=== PATIENT | female | born 1950 | race Caucasian/White ===

== ENCOUNTER 2020-05-18 07:02 | Inpatient (IN) | payer MEDICAID, MEDICARE ==
[~2020-05-18] VITALS: Ht 157.5 cm; Wt 64.9 kg
[2020-05-18] MEDS ORDERED: MORPHINE SULFATE 2 MG/1 ML DISP.SYRIN ONE (07:43)
[2020-05-18] MEDS ORDERED: ONDANSETRON 4 MG/2 ML VIAL ONE (07:43)
[2020-05-18 07:45] LABS: *BILIRUBIN,URIN NEGATIVE (NEGATIVE); *BLOOD, URINE 1+ (NEGATIVE); *CLARITY,URINE SLIGHTLY CLOUDY (CLEAR); *COLOR,URINE LIGHT YELLOW (YELLOW); *KETONES,URINE NEGATIVE (NEGATIVE); *UROBILINOGEN,URINE 0.2 E.U./dl (NORMAL); LEUKOCYTE ESTERASE ,URINE 3+ (NEGATIVE); NITRITE, URINE POSITIVE (NEGATIVE); PH,URINE 5.5 (5.0-8.0); UGLUCOSE NEGATIVE (NEGATIVE)
[2020-05-18 07:45] LABS: BASOPHILS % (AUTO) 0.2 % (0.0-2.0); EOSINOPHILS % (AUTO) 1.1 % (0.0-7.0); HEMATOCRIT 31.5 % (31.2-41.9); HEMOGLOBIN 10.4 g/dL (10.9-14.3); LYMPHOCYTES # (AUTO) 1.3 K/uL (20.0-40.0); LYMPHOCYTES % (AUTO) 32.5 % (20.5-51.5); MEAN CORPUSCULAR HEMOGLOBIN 30.8 uug (24.7-32.8); MEAN CORPUSCULAR HGB CONC 33 g/dL (32.3-35.6); MEAN CORPUSCULAR VOLUME 93.1 fL (75.5-95.3); MONOCYTES # (AUTO) 0.3 K/uL (2.0-10.0); MONOCYTES % (AUTO) 7.1 % (0.0-11.0); NEUTROPHILS # (AUTO) 2.3 K/uL (1.8-8.9); NEUTROPHILS % (AUTO) 59.1 % (38.5-71.5); PLATELET COUNT (AUTO) 218 K/uL (179-408); RED BLOOD CELL COUNT(AUTO) 3.38 MIL/uL (3.63-4.92); WHITE BLOOD COUNT (AUTO) 3.9 K/uL (3.8-11.8)
[2020-05-18] MEDS ORDERED: MORPHINE SULFATE 2 MG/1 ML DISP.SYRIN IV ONE (07:45)
[2020-05-18] MEDS ORDERED: ONDANSETRON 4 MG/2 ML VIAL IV ONE (07:45)
[2020-05-18 07:49] LABS: CREATININE 0.9 mg/dL (0.6-1.3); POTASSIUM 3.4 mmol/L (3.5-5.1)
[2020-05-18 07:55] LABS: BILIRUBIN,DIRECT 0.2 mg/dL (0.0-0.2); BILIRUBIN,TOTAL 0.7 mg/dL (0.2-1.0); TOTAL PROTEIN, SERUM 7.7 g/dL (6.4-8.2)
--- NOTE | 2020-05-18 08:24 | NUR ---
Paged [facility] for admit. Awaiting DR payton call back.
[2020-05-18] MEDS ORDERED: CEFTRIAXONE /D5W 50ML IVPB **ER PYXIS IV ONE (08:27)
--- NOTE | 2020-05-18 08:28 | NUR ---
ZOLTAN VILLARREAL spoke to Dr Parks ([facility]).
[2020-05-18] MEDS ORDERED: CEFTRIAXONE 1 G in IV DEXTROSE 5% 50 ML IV ONE (08:30)
[2020-05-18] MEDS ORDERED: KETAMINE HCL 500 MG/10 ML INJ IV ONE (08:30)
[2020-05-18] MEDS ORDERED: KETAMINE HCL 500 MG/10 ML INJ ONE (08:37)
--- NOTE | 2020-05-18 08:52 | NUR ---
WAITING FOR PT'S SON TO BRING IN LIST OF HOME MEDS.
--- NOTE | 2020-05-18 10:20 | NUR ---
transfered pt to floor in stable condition. pt remained comfortable after ketamine. ra sat 98%.
--- NOTE | 2020-05-18 10:35 | NUR ---
Admitted the patient from the ER. with admitting diagnosis of abdominal pain, right flank pain, and lower back pain. Patient is alert and oriented x 4. Cooperative upon assessment. On chang catheter, IV access on left AC. skin is intact. VS wnl. on RA saturating at 96%. Called [facility] pharmacy to clarify her home meds and dosages. Call light within reach, bed alarm on and all needs attended promptly. Patient has antibiotic at bedside and gave to pharmacy. Patient prefer Kosher food and dietary notified. MRSA swab done and forward to the lab. Will continue to monitor.
[2020-05-18 11:28] VITALS: BP 144/66
[2020-05-18] MEDS ORDERED: ZOLPIDEM 5 MG TABLET PO PRN (11:30)
[2020-05-18] MEDS ORDERED: Z GUARD REMEDY PASTE 57 GM TUBE TOP PRN (11:30)
[2020-05-18] MEDS ORDERED: METO-356 PO (11:56)
[2020-05-18] MEDS ORDERED: ASCO500T10 PO (11:56)
[2020-05-18] MEDS ORDERED: OMEP20CA15 PO (11:56)
[2020-05-18] MEDS ORDERED: LISI-782 PO (11:56)
[2020-05-18] MEDS ORDERED: METF-440 PO (11:56)
[2020-05-18] MEDS ORDERED: FLUO20CA36 PO (11:56)
[2020-05-18] MEDS ORDERED: OMEGA FISH OIL PO (11:56)
[2020-05-18] MEDS: ENOXAPARIN SODIUM 40 MG/0.4 ML DISP.SYRIN SQ SCH (13:40)
[2020-05-18 15:59] VITALS: BP 104/57
[2020-05-18] MEDS: IV NS 1000 ML 1,000 ML IV PRN (16:18)
[2020-05-18 20:00] VITALS: BP 126/75
[2020-05-18 20:24] LABS: BACTERIA,URINE MODERATE /HPF (NONE SEEN); SQUAMOUS EPITHELIAL CELL,UR FEW /HPF (NONE SEEN); WBC,URINE 50-80 /HPF (0-3)
[2020-05-18] MEDS: HYDROCODONE/APAP 10-325 MG TABLET PO PRN (20:24)
[2020-05-19 04:00] VITALS: BP 116/67
[2020-05-19] MEDS: HYDROCODONE/APAP 10-325 MG TABLET PO PRN ×3 (04:41→23:39)
[2020-05-19 06:15] LABS: BASOPHILS % (AUTO) 0.3 % (0.0-2.0); EOSINOPHILS % (AUTO) 1.3 % (0.0-7.0); HEMOGLOBIN 9.5 g/dL (10.9-14.3); LYMPHOCYTES # (AUTO) 0.9 K/uL (20.0-40.0); LYMPHOCYTES % (AUTO) 28.4 % (20.5-51.5); MEAN CORPUSCULAR HEMOGLOBIN 31.4 uug (24.7-32.8); MEAN CORPUSCULAR HGB CONC 34 g/dL (32.3-35.6); MONOCYTES # (AUTO) 0.2 K/uL (2.0-10.0); MONOCYTES % (AUTO) 7.6 % (0.0-11.0); NEUTROPHILS % (AUTO) 62.4 % (38.5-71.5); PLATELET COUNT (AUTO) 174 K/uL (179-408); RED BLOOD CELL COUNT(AUTO) 3.01 MIL/uL (3.63-4.92); WHITE BLOOD COUNT (AUTO) 3.1 K/uL (3.8-11.8)
[2020-05-19] MEDS: PANTOPRAZOLE SODIUM 40 MG TABLET.DR PO SCH (06:37)
[2020-05-19 06:49] LABS: BILIRUBIN,TOTAL 0.6 mg/dL (0.2-1.0); CREATININE 0.8 mg/dL (0.6-1.3); MAGNESIUM 1.6 mg/dL (1.8-2.4); PHOSPHOROUS 3.4 mg/dL (2.5-4.9); POTASSIUM 3.8 mmol/L (3.5-5.1); TOTAL PROTEIN, SERUM 6.7 g/dL (6.4-8.2)
[2020-05-19 06:52] LABS: THYROID STIMULATING HORMONE 1.206 mIU/mL (0.358-3.740)
[2020-05-19] MEDS: IV NS 1000 ML 1,000 ML IV PRN (07:50)
[2020-05-19] MEDS: CEFTRIAXONE 1 G in IV DEXTROSE 5% 50 ML IV SCH (08:02)
[2020-05-19] MEDS: ENOXAPARIN SODIUM 40 MG/0.4 ML DISP.SYRIN SQ SCH (08:03)
[2020-05-19] MEDS: MAGNESIUM HYDROXIDE 30 ML LIQUID UDC PO PRN (08:32)
[2020-05-19] MEDS: MAGNESIUM SULFATE/D5W 100 ML IV SCH ×2 (10:28→10:45)
[2020-05-19 11:30] LABS: *RHEUMATOID FACTOR SCREEN NEGATIVE (NEGATIVE)
[2020-05-19 11:31] VITALS: BP 114/68
[2020-05-19] MEDS ORDERED: LACTULOSE 20 G/30 ML LIQUID UDC PO ONE (11:45)
[2020-05-19] MEDS ORDERED: SORBITOL 70% SOLUTION 30 ML UDC PO ONE (11:45)
[2020-05-19] MEDS: ONDANSETRON 4 MG/2 ML VIAL IV PRN (13:51)
[2020-05-19 15:08] VITALS: BP 119/71
--- NOTE | 2020-05-19 19:45 | NUR ---
PATIENT ALERT ORIENTED, CONT ON PAIN MANAGEMENT DUE R SIDE OF PELVIC THRU BACK. PATIENT CROCKETT CATH PATENT DRAINING WITH NINO COLOR URINE. PATIENT HAS NO COMPLAIN OF PAIN AT THIS TIME. CONT TO MONITOR.
[2020-05-19 20:00] VITALS: BP 118/64
[2020-05-19] MEDS: ACETAMINOPHEN 325 MG TABLET PO PRN (20:54)
[2020-05-20 04:00] VITALS: BP 121/55
[2020-05-20] MEDS: ACETAMINOPHEN 325 MG TABLET PO PRN (04:15)
--- NOTE | 2020-05-20 06:05 | NUR ---
PATIENT SLEPT INTERMITTENTLY, CONT ON PAIN MANAGEMENT, CROCKETT CATH PATENT, CONT TO MONITOR.
[2020-05-20] MEDS: HYDROCODONE/APAP 10-325 MG TABLET PO PRN ×2 (06:12→23:37)
[2020-05-20] MEDS: PANTOPRAZOLE SODIUM 40 MG TABLET.DR PO SCH (06:13)
[2020-05-20 06:58] LABS: BASOPHILS % (AUTO) 0.2 % (0.0-2.0); HEMATOCRIT 28.5 % (31.2-41.9); HEMOGLOBIN 9.4 g/dL (10.9-14.3); LYMPHOCYTES # (AUTO) 0.9 K/uL (20.0-40.0); LYMPHOCYTES % (AUTO) 20.1 % (20.5-51.5); MEAN CORPUSCULAR HEMOGLOBIN 30.8 uug (24.7-32.8); MEAN CORPUSCULAR HGB CONC 33 g/dL (32.3-35.6); MEAN CORPUSCULAR VOLUME 93.4 fL (75.5-95.3); MONOCYTES # (AUTO) 0.3 K/uL (2.0-10.0); MONOCYTES % (AUTO) 7.7 % (0.0-11.0); NEUTROPHILS # (AUTO) 3.1 K/uL (1.8-8.9); PLATELET COUNT (AUTO) 169 K/uL (179-408); RED BLOOD CELL COUNT(AUTO) 3.06 MIL/uL (3.63-4.92); WHITE BLOOD COUNT (AUTO) 4.4 K/uL (3.8-11.8)
--- NOTE | 2020-05-20 07:30 | NUR ---
received change of shift report. pt in bed resting, easily arousable, awake alert and oriented x4, pt on room air, no signs of distress noted, no reports of pain at this time. pt able to ambulate with assist and front wheel walker. Pt NPO for CT procedure. pt has bernardo IV on the left hand 22g IVF infusing NS 100cc. bed in low and locked position, call light within reach, safety and fall precautions in place. will continue with plan of care.
[2020-05-20 07:39] LABS: CREATININE 0.8 mg/dL (0.6-1.3); POTASSIUM 4.7 mmol/L (3.5-5.1)
[2020-05-20 08:00] VITALS: BP 130/76
[2020-05-20] MEDS: METOPROLOL SUCCINATE XL 25 MG TAB.SR.24H PO SCH ×2 (09:00→17:00)
[2020-05-20] MEDS: ASCORBIC ACID 500 MG TABLET PO SCH (09:00)
[2020-05-20] MEDS: LISINOPRIL 5 MG TABLET PO SCH (09:00)
[2020-05-20] MEDS: FLUOXETINE HCL 20 MG CAPSULE PO SCH (09:01)
[2020-05-20] MEDS: CEFTRIAXONE 1 G in IV DEXTROSE 5% 50 ML IV SCH (09:01)
[2020-05-20] MEDS ORDERED: DEXTROSE 50% 50 ML DISP.SYRIN IV PRN (10:30)
[2020-05-20] MEDS: MORPHINE SULFATE 2 MG/1 ML DISP.SYRIN IV PRN (10:46)
[2020-05-20] MEDS ORDERED: FENTANYL CITRATE 250 MCG/5 ML AMPUL IV PRN (11:00)
[2020-05-20] MEDS ORDERED: MIDAZOLAM HCL 2 MG/2 ML VIAL IV PRN (11:15)
[2020-05-20] MEDS ORDERED: FENTANYL CITRATE 100 MCG/2 ML AMPUL IV PRN (11:15)
[2020-05-20] MEDS ORDERED: NALOXONE HCL 0.4 MG/ML AMPUL IV PRN (11:15)
[2020-05-20 11:24] VITALS: BP 137/71
[2020-05-20] MEDS: BLOOD SUGAR DIAGNOSTIC 1 EACH STRIP VI SCH ×3 (11:34→20:52)
[2020-05-20 16:00] VITALS: BP 101/50
[2020-05-20] MEDS: ONDANSETRON 4 MG/2 ML VIAL IV PRN (16:49)
[2020-05-20] MEDS: INSULIN REGULAR, HUMAN 300 UNIT/3 ML VIAL SQ PRN ×2 (18:31→20:51)
--- NOTE | 2020-05-20 18:47 | NUR ---
pt resting in bed, IV access on the left hand 22g running NS at 100cc. pt awake alert and oriented x4, on room air, no signs of distress noted, no reports of pain at this time. pt able to ambulate with assist via FWW. pt on CCHO diet, pt has chang, voiding sajan urine. bed in low an dlocked position, call light within reach, safety precautions in place, will endorse to oncoming nurse.
--- NOTE | 2020-05-20 19:47 | NUR ---
Per Marcia Mendoza NP patient is ok to continue lovenox tonight. Notified pharmacy of update.
--- NOTE | 2020-05-20 20:00 | NUR ---
Received patient walking in the hallways with their FWW. Pt AAOx4. On RA, denies SOB. Pt c/o abdominal pain and constipation, milk of mag will be administered per order. Davenport in place and draining via gravity. Left hand IV patent and intact, NS infusing at 75 ml/hr. Safety measures in place, call light within reach, bed locked and low.
[2020-05-20 20:04] VITALS: BP 113/56
[2020-05-20] MEDS: MAGNESIUM HYDROXIDE 30 ML LIQUID UDC PO PRN (20:51)
[2020-05-20] MEDS ORDERED: ENOXAPARIN SODIUM 40 MG/0.4 ML DISP.SYRIN SQ SCH (21:00)
[2020-05-20] MEDS: IV NS 1000 ML 1,000 ML IV PRN (21:55)
[2020-05-21 04:04] VITALS: BP 106/59
[2020-05-21 06:14] LABS: BASOPHILS % (AUTO) 0.2 % (0.0-2.0); EOSINOPHILS # (AUTO) 0.1 K/uL (0.0-0.7); EOSINOPHILS % (AUTO) 1.1 % (0.0-7.0); HEMATOCRIT 28.4 % (31.2-41.9); HEMOGLOBIN 9.2 g/dL (10.9-14.3); LYMPHOCYTES # (AUTO) 1.4 K/uL (20.0-40.0); LYMPHOCYTES % (AUTO) 28.9 % (20.5-51.5); MEAN CORPUSCULAR HEMOGLOBIN 30.3 uug (24.7-32.8); MEAN CORPUSCULAR HGB CONC 33 g/dL (32.3-35.6); MEAN CORPUSCULAR VOLUME 93.3 fL (75.5-95.3); MONOCYTES # (AUTO) 0.4 K/uL (2.0-10.0); NEUTROPHILS % (AUTO) 60.8 % (38.5-71.5); PLATELET COUNT (AUTO) 162 K/uL (179-408); RED BLOOD CELL COUNT(AUTO) 3.05 MIL/uL (3.63-4.92); WHITE BLOOD COUNT (AUTO) 4.9 K/uL (3.8-11.8)
[2020-05-21] MEDS: PANTOPRAZOLE SODIUM 40 MG TABLET.DR PO SCH (06:17)
[2020-05-21 06:37] LABS: CREATININE 0.7 mg/dL (0.6-1.3); MAGNESIUM 2.1 mg/dL (1.8-2.4); POTASSIUM 4.2 mmol/L (3.5-5.1)
[2020-05-21] MEDS: BLOOD SUGAR DIAGNOSTIC 1 EACH STRIP VI SCH (06:42)
--- NOTE | 2020-05-21 07:08 | NUR ---
Patient slept well. All needs were met and attended to. Patient given milk of mag for constipation last night, no bowel movement noted. Left hand IV patent and intact. Davenport draining via gravity. Safety measures in place, will endorse to oncoming shift.
--- NOTE | 2020-05-21 07:30 | NUR ---
received change of shift report. pt in bed resting, no complaints of pain at this time, on room air, no signs of shortness of breath. A/O x4, amb with FWW, bernardo in tact, draining by gravity, BRP, IV access on the left hand 22g running NS at 75cc. bed in low and locked position, call light within reach, safety precautions in place.
[2020-05-21] MEDS ORDERED: CEPH500C2 PO (09:00)
[2020-05-21] MEDS ORDERED: DOCU250C14 PO (09:00)
[2020-05-21] MEDS: LISINOPRIL 5 MG TABLET PO SCH (09:00)
[2020-05-21] MEDS ORDERED: HYDR-3980 PO (09:00)
[2020-05-21] MEDS: METOPROLOL SUCCINATE XL 25 MG TAB.SR.24H PO SCH ×2 (09:00→17:00)
[2020-05-21] MEDS: CEFTRIAXONE 1 G in IV DEXTROSE 5% 50 ML IV SCH (09:25)
[2020-05-21 09:29] VITALS: BP 100/48
[2020-05-21] MEDS: FLUOXETINE HCL 20 MG CAPSULE PO SCH (09:31)
[2020-05-21] MEDS: ASCORBIC ACID 500 MG TABLET PO SCH (09:31)
[2020-05-21] MEDS: METFORMIN HCL 500 MG TABLET PO SCH ×2 (09:32→17:55)
[2020-05-21 11:44] VITALS: BP 113/43
[2020-05-21] MEDS ORDERED: LACTULOSE 20 G/30 ML LIQUID UDC PO ONE (12:15)
[2020-05-21] MEDS: MORPHINE SULFATE 2 MG/1 ML DISP.SYRIN IV PRN ×2 (12:33→18:06)
[2020-05-21 16:00] VITALS: BP 118/72
[2020-05-21 17:57] LABS: CANCER AG, 125 7.5
[2020-05-21 17:58] LABS: *IMMUNOGLOBULIN G, SERUM 1071; IMMUNOGLOBULIN A, SERUM 230
[2020-05-21 17:59] LABS: IMMUNOGLOBULIN M, SERUM 110
[2020-05-21 18:00] LABS: ALBUMIN 3.2
[2020-05-21 18:01] LABS: ALPHA-1-GLOBULIN 0.3; ALPHA-2-GLOBULIN 0.8
[2020-05-21 18:02] LABS: BETA GLOBULIN 0.9; GAMMA GLOBULIN 1.2
[2020-05-21 18:03] LABS: GLOBULIN, TOTAL 3.1; M-SPIKE Not Observed
[2020-05-21 18:06] LABS: HEPATITIS B SURFACE AG Negative
[2020-05-21 18:07] LABS: HEPATITIS B SURFACE AB Non Reactive
[2020-05-21 18:10] LABS: *ANTI-SCLERODERMA-70 AB <0.2; *SJOGREN'S ANTI-SS-A <0.2; *SJOGREN'S ANTI-SS-B <0.2; *SMITH ANTIBODIES <0.2; ANTI-DNA(DS) AB, QN 18 HIGH
--- NOTE | 2020-05-21 18:55 | NUR ---
pt to be discharged when family arrives. pt has all belongings, paperwork, CD, and prescriptions. Pt has walker at bedside to take home, ambulatory with walker, chang removed, pt voided, bed in low and locked position, call light within reach, safety precautions in place. pt shows no signs of shortness of breath, pt reported pain, medication was given as prescribed. will endorse to oncoming nurse.
--- NOTE | 2020-05-21 19:30 | NUR ---
Received pt in bed, awake and verbally responsive, no s/s of respiratory distress, denies any pain or discomfort. Pt to be discharged when family arrives. Belongings, paperwork and walker at bedside. Safety measures maintained. Call light within reach.
[2020-05-21 20:00] VITALS: BP 117/55
--- NOTE | 2020-05-21 20:30 | NUR ---
Pt became impatient waiting for her son to pick her up. Daughter booked for uber. Accompanied pt to the lobby, checked uber car's plate number provided by the daughter, assisted with belongings, pt transferred to the car safely.
== END 2020-05-21 20:56 | disposition home or self-care (01) | DRG 755 ==
LOC: ER 07:06 → TELE3 10:19 → MEDSURG3 13:13
PROVIDERS: ADMIT Nurse Practitioner Acute Care; ATTEND Nurse Practitioner Acute Care
PROC: 0WBH3ZX Excision of Retroperitoneum, Percutaneous Approach, Diagnostic (ICD-10-PCS; principal; 2020-05-20)
DX: C76.3 Malignant neoplasm of pelvis (principal); N39.0 Urinary tract infection, site not specified; Z85.528 Personal history of other malignant neoplasm of kidney; E87.6 Hypokalemia; D64.9 Anemia, unspecified; D69.6 Thrombocytopenia, unspecified; D72.819 Decreased white blood cell count, unspecified; E11.9 Type 2 diabetes mellitus without complications; G89.29 Other chronic pain; K76.9 Liver disease, unspecified; Z88.0 Allergy status to penicillin; F32.9 Major depressive disorder, single episode, unspecified; B96.20 Unspecified Escherichia coli [E. coli] as the cause of diseases classified elsewhere; Z90.5 Acquired absence of kidney; Z90.710 Acquired absence of both cervix and uterus; Z20.822 Contact with and (suspected) exposure to COVID-19; Z79.84 Long term (current) use of oral hypoglycemic drugs; I10 Essential (primary) hypertension
CPT/HCPCS: 36415; 51702; 72192; 74018; 76942; 82784; 83550; 83605; 83615; 83690; 83735; 84100; 84155; 84165; 84443; 85025; 85610; 85730; 86038; 86334; 86430; 86706; 86803; 87040; 87077; 87086; 87340; 88333-TC; 88341; 88342; 93005; A4663; G0378; J0696; J1650; J1815; J2250; J2270; J2310; J2405; J3010; J3475; J3490; J7030; J7050; J7060

== ENCOUNTER 2020-05-23 07:28 | Emergency (ER) | payer MEDICARE ==
[~2020-05-23] VITALS: Ht 160 cm; Wt 64.9 kg
[~2020-05-23 07:28] MED LIST: ASCO500T10 PO; CEPH500C2 PO; DOCU250C14 PO; FLUO20CA36 PO; HYDR-3980 PO; LISI-782 PO; METF-440 PO; METO-356 PO; OMEGA FISH OIL PO; OMEP20CA15 PO
--- NOTE | 2020-05-23 07:40 | NUR ---
at bedside for assessment
[2020-05-23] MEDS ORDERED: ACET1TAB23 PO (07:51)
[2020-05-23] MEDS ORDERED: ACET-2154 PO (07:51)
[2020-05-23] MEDS ORDERED: HYDROCODONE/APAP 10-325 MG TABLET PO ONE (08:00)
[2020-05-23] MEDS ORDERED: HYDROCODONE/APAP 10-325 MG TABLET ONE (08:05)
--- NOTE | 2020-05-23 08:23 | NUR ---
Davenport catheter placed, extra leg bag given per request, pain medication given
[2020-05-23 08:32] VITALS: BP 127/76
--- NOTE | 2020-05-23 08:32 | NUR ---
Patient discharged to home in stable condition. Written and verbal after care instructions given. Patient verbalizes understanding of instructions. Stressed follow up or return to ER for worsening s/s.
== END 2020-05-23 08:34 | disposition home or self-care (01) ==
LOC: ER 07:28
DX: R33.9 Retention of urine, unspecified (principal); Z90.5 Acquired absence of kidney; E11.9 Type 2 diabetes mellitus without complications; Z79.84 Long term (current) use of oral hypoglycemic drugs; N39.0 Urinary tract infection, site not specified; Z88.0 Allergy status to penicillin
CPT/HCPCS: 51702; A4663